=== PATIENT | female | born 1975 | race Caucasian/White ===

== ENCOUNTER → 2021-11-27 | Outpatient (CLI) | payer BC ==
[~2021-11-27] MED LIST: AMOX500C2 PO; CEPH500C PO; CYCL10TA9 PO; ESTR1TAB22; ESTR1TAB24 PO; FERR-57; FLUO10CA19; FLUO20CA25 PO; HYDR1TAB PO; IBUP-15 PO; LANS30CA PO; LISI20TA PO; LOVA40TA2 PO; LVT.05T PO; MONT10TA24 PO; NEOM10SO20 RIGHT EAR; ONDA8TAB13 PO; ONDA8TAB6 PO; RANI75TA30 PO; SCR1T1 PO; THYR60TA2 PO
--- NOTE | 2021-11-27 17:56 | Diagnostic Imaging Report ---
EXAMINATION: US Retroperitoneal Complete. TECHNIQUE: Multiple real-time grayscale images were obtained over the kidneys in various projections bilaterally. HISTORY: Chronic kidney disease COMPARISON: 10/06/2014 FINDINGS: The right kidney demonstrates normal echogenicity and cortical thickness. The right kidney measures 9.6 x 3.1 x 3.8 cm. There is moderate right hydronephrosis. The left kidney demonstrates normal echogenicity and cortical thickness. The left kidney measures 10.9 x 4.8 x 4.9 cm. No hydronephrosis. The urinary bladder is normal. Bilateral ureteral jets are seen. The post void volume is 24 ml. IMPRESSION: 1. Mild right hydronephrosis. Dictated by: Dictated on workstation # [id number]
== END ==
LOC: RAD 15:15
PROVIDERS: ATTEND Nurse Practitioner
DX: N13.30 Unspecified hydronephrosis (principal); N18.32 Chronic kidney disease, stage 3b
CPT/HCPCS: 76770

== ENCOUNTER → 2021-12-27 | Outpatient (CLI) | payer BC ==
--- NOTE | 2021-12-27 17:18 | Diagnostic Imaging Report ---
PROCEDURE: CT abdomen and pelvis without contrast. TECHNIQUE: Multiple contiguous axial images were obtained through the abdomen and pelvis without the use of intravenous contrast. Auto Exposure Controls were utilized during the CT exam to meet ALARA standards for radiation dose reduction. INDICATION: Renal failure. Patient has had prior bladder mass surgery. Correlation is made with prior CT from 10/06/2014. Lung bases are clear. The liver is unremarkable. The gallbladder is surgically absent. No biliary ductal dilatation is seen. Pancreas and spleen are unremarkable. Right adrenal gland is unremarkable. Left adrenal gland low-density mass is present measuring 3.2 x 2.8 cm compared with 2.7 x 2.0 cm. Right kidney is atrophic. There appears to be a calculus in the proximal right ureter measuring 3 mm. No left-sided renal calculi are seen. Aorta is nonaneurysmal. Small and large bowel loops are normal caliber. There is no ascites. The bladder is unremarkable. Uterus appears to be surgically absent. IMPRESSION: 1. Atrophic right kidney. There is a small calculus in the proximal right ureter producing very mild hydronephrosis. Left kidney is unremarkable. 2. Enlarging fatty left adrenal mass consistent with an enlarging adrenal adenoma or myelolipoma. 3. No other significant abnormality is seen. Dictated by: Dictated on workstation # [id number]
== END ==
LOC: RAD 15:07
PROVIDERS: ATTEND Urology
DX: N13.2 Hydronephrosis with renal and ureteral calculous obstruction (principal); N19 Unspecified kidney failure; N26.1 Atrophy of kidney (terminal); E27.9 Disorder of adrenal gland, unspecified; Z98.890 Other specified postprocedural states
CPT/HCPCS: 74176

== ENCOUNTER → 2021-12-31 | Outpatient (CLI) | payer BC ==
--- NOTE | 2021-12-31 13:59 | Diagnostic Imaging Report ---
INDICATION: Right-sided kidney stone. TIME OF EXAM: 1:11 p.m. Comparison is made with CT study from 12/27/2021. FINDINGS: There is a calcific density in the region of the proximal right ureter located between the right transverse processes of L2 and L3. This is similar to recent CT study. No other definite radiopaque urinary tract calculi are seen. There are surgical clips in the pelvis on the right side. Bowel gas pattern is unremarkable. IMPRESSION: Proximal right ureteric calculus, similar to position as the CT study from four days earlier. Dictated by: Dictated on workstation # [id number]
== END ==
LOC: RAD
PROVIDERS: ATTEND Urology
DX: N20.2 Calculus of kidney with calculus of ureter (principal)
CPT/HCPCS: 74018

== ENCOUNTER 2022-01-01 05:29 | Outpatient (CLI) | payer BC ==
[~2022-01-01] VITALS: Ht 157.5 cm; Wt 77.3 kg
== END 2022-01-01 15:22 | disposition home or self-care (01) ==
LOC: PREOP 05:29
PROVIDERS: ATTEND Urology
DX: Z01.818 Encounter for other preprocedural examination (principal)

== ENCOUNTER 2022-01-07 07:42 | Day surgery (SDC) | payer BC ==
[2022-01-07] VITALS (10 sets, daily range): BP systolic 95–133; BP diastolic 64–90
[~2022-01-07] VITALS: Ht 157.5 cm; Wt 77.3 kg
[2022-01-07] MEDS ORDERED: cefTRIAXone 1 GM PRE-MIX 50 ML IV ONE (08:15)
[2022-01-07] MEDS ORDERED: NS IV 500 ML 500 ML IV SCH (08:15)
[2022-01-07] MEDS ORDERED: LACTATED RINGERS 1,000 ML IV PRN (08:15)
--- NOTE | 2022-01-07 08:29 | Diagnostic Imaging Report ---
CLINICAL INDICATION: Preop x-ray for right ESWL. EXAM: X-ray of the abdomen with multiple supine and upright views. COMPARISON: CT scan of the abdomen and pelvis without contrast dated 12/27/2021. X-ray of the abdomen dated 12/31/2021. FINDINGS: There is a nonobstructed bowel gas pattern. There is no evidence of abdominal free air. Surgical clips are seen overlying the right upper quadrant which could be related to cholecystectomy changes. Again seen focal calcifications around the L3 vertebra which correlates to a stone in the right ureter. There are surgical clips in the region of the pelvis on the right side. The visualized bones and extra abdominal soft tissues are unremarkable. IMPRESSION: 1: Stable focal calcification in the right of the L3 vertebra representing stone in the right ureter. Dictated by: Dictated on workstation # [id number]
[2022-01-07 09:20] LABS: CALCIUM 9.1 MG/DL (8.5-10.1); CREATININE SERUM 1.4 MG/DL (0.60-1.30); POTASSIUM 4.3 MMOL/L (3.6-5.0)
[2022-01-07] MEDS ORDERED: RT-ALBUINH INH (09:27)
[2022-01-07] MEDS ORDERED: LISI10TA25 PO (09:27)
[2022-01-07] MEDS ORDERED: PANT40TA2 PO (09:27)
[2022-01-07] MEDS ORDERED: MIRA50TA PO (09:27)
--- NOTE | 2022-01-07 10:09 | Progress Note-Pre Operative ---
Pre-Operative Progress Note H&P Reviewed The H&P was reviewed, patient examined and no changes noted. Date Seen by Provider: Jan 07, 2022 Time Seen by Provider: 10:09 Date H&P Reviewed: Jan 07, 2022 Time H&P Reviewed: 10:09 Pre-Operative Diagnosis: RT PROXIMAL URETERAL STONE BRAXTON STEWARD MD Jan 07, 2022 10:09
--- NOTE | 2022-01-07 10:16 | Progress Note-Post Operative ---
Post-Operative Progess Note Surgeon (s)/Compressed Gas Equipment Mechanic (s) Surgeon BRAXTON STEWARD MD Compressed Gas Equipment Mechanic: NONE Pre-Operative Diagnosis RT PROXIMAL URETERAL STONE Post-Operative Diagnosis SAME Procedure & Operative Findings Date of Procedure 01/07/22 Procedure Performed/Findings RT ESWL Anesthesia Type GENERAL Estimated Blood Loss Estimated blood loss (mL): NONE Specimens/Packing Specimens Removed NONE Packing: NONE BRAXTON STEWARD MD Jan 07, 2022 10:16
--- NOTE | 2022-01-07 10:18 | Discharge Inst-Urology ---
Discharge Inst-Urology Reconcile Patient Problems Problems Reviewed?: Yes Final Diagnosis RT PROXIMAL URETERAL STONE Patient Instructions/Follow Up Plan/Assessment/Instructions Please make appointment to been seen in office in 3 weeks. KUB prior to it KUB on way home Post ESWL instructions Increase oral fluids for 48 hours and then as needed. Diet and Activity as tolerated. If questions or concerns contact your physician Or seek help at emergency department. BRAXTON STEWARD MD Jan 07, 2022 10:18
[2022-01-07] MEDS ORDERED: fentaNYL INJ 100 MCG/2 ML AMP ONE (11:52)
[2022-01-07] MEDS ORDERED: MIDAZOLAM 2 MG/2 ML (VERSED) VIAL ONE (11:53)
[2022-01-07] MEDS ORDERED: proPOfol 200 MG/20 ML (DIPRIVAN) VIAL IV ONE (12:05)
[2022-01-07] MEDS ORDERED: ONDANSETRON 4 MG/2 ML (SDV) Z0FRAN ONE (12:05)
[2022-01-07] MEDS ORDERED: LIDOCAINE PF 2% 5 ML (XYLOCAINE) VIAL ONE (12:05)
--- NOTE | 2022-01-07 12:34 | Anesthesia-General Post-Op ---
General Patient Condition Mental Status/LOC: Same as Preop Cardiovascular: Satisfactory Nausea/Vomiting: Absent Respiratory: Satisfactory Pain: Controlled Complications: Absent Post Op Complications Complications None Follow Up Care/Instructions Patient Instructions None needed. Anesthesia/Patient Condition Patient Condition Patient is doing well, no complaints, stable vital signs, no apparent adverse anesthesia problems. No complications reported per nursing. PAULETTE LANDA CRNA Jan 07, 2022 12:34
[2022-01-07] MEDS ORDERED: SEVOFLURANE (ULTANE) 15 ML INHAL SOLN ONE (12:40)
[2022-01-07] MEDS ORDERED: FUROSEMIDE 40 MG/4 ML INJ (LASIX) ONE (12:40)
[2022-01-07] MEDS ORDERED: KETOROLAC 30 MG/ML VIAL ONE (12:40)
--- NOTE | 2022-01-07 14:15 | Diagnostic Imaging Report ---
EXAMINATION: Abdomen 1 view HISTORY: POST ESWL COMPARISON: 01/07/2022. FINDINGS: There is a moderate amount of gas and stool throughout the colon. Nonobstructive bowel gas pattern. Persistent 0.4 cm opacity overlying the right paraspinous abdomen compared to prior exam on 01/07/2022. The osseous structures are intact. Surgical clips within the right upper quadrant and right pelvis. IMPRESSION: Stable opacity overlying the expected location in the right mid ureter. Dictated by: Dictated on workstation # [id number]
--- NOTE | 2022-01-07 20:03 | OPERATIVE REPORT ---
DATE OF SERVICE: 01/07/2022 PREOPERATIVE DIAGNOSIS: Right proximal ureteral stone. POSTOPERATIVE DIAGNOSIS: Right proximal ureteral stone. OPERATION PERFORMED: Right ESWL. SURGEON: Ramón Steward MD ANESTHESIA: General. COMPLICATIONS: None. DESCRIPTION OF PROCEDURE: Under satisfactory general anesthesia, the patient in supine position on the ESWL table, the right ureteral proximal stone was localized. Shocks were delivered at kV of 6. Total of 2500 shocks completely fragmented the stone. The patient received 40 mg of Lasix and 30 mg of Toradol IV at the end of the procedure. She tolerated the procedure and anesthesia well and was sent to recovery room in stable condition. Job ID: [id number] DocumentID: [id number] Dictated Date: 01/07/2022 12:16:08 [employer] Date: 01/07/2022 20:02:57 Dictated By: RAMÓN STEWARD MD
== END 2022-01-07 14:20 | disposition home or self-care (01) ==
LOC: SDC 07:42
PROVIDERS: ATTEND Urology
DX: N20.1 Calculus of ureter (principal); F17.200 Nicotine dependence, unspecified, uncomplicated; Z88.1 Allergy status to other antibiotic agents; Z88.2 Allergy status to sulfonamides
CPT/HCPCS: 36415; 74018; 80048; 87081